=== PATIENT | female | born 1990 ===

== ENCOUNTER 2017-08-20 00:26 | Inpatient (IN) | payer OTHER ==
[~2017-08-20] VITALS: Ht 167.6 cm; Wt 106.6 kg
[2017-08-20 00:48] VITALS: BP 123/59
--- NOTE | 2017-08-20 01:02 | Labor & Delivery Summary ---
Delivery Summary Vaginal Delivery: Vaginal: vertex Placenta: Placenta: spontanteous, normal, 3 vessel, 50 PERCENT ABRUPTION Anesthesia: none Additional Comments: Patient delivered precipitously by nursing viable male infant normal spontaneous vaginal delivery over intact perineum. Placenta self PROPELLED after delivery with a 50% abruption. Patient is O+ 3 blood loss 200 mL
--- NOTE | 2017-08-20 01:10 | History & Physical Pre-Op ---
General Information and HPI MD Statement: I have seen and personally examined ABIMBOLA VOGT and documented this H&P. The patient is a 27 year old F who presented with a patient stated chief complaint of its coming out. Patient delivered precipitously placenta by continuous cord traction. Patient had had adequate care with Gera Mahoney MD on she was here at the childbirth Center earlier today was 1 cm she presented on during delivery. Patient denies any headache edema placenta was examined and found to have a 50% abruption []. History of Present Illness: 77-year-old 3 para 1011 at 39 weeks gestation presents to the childbirth center for the second time and has a precipitous delivery. Patient denies fever headache. Ruptured membranes occurred during the delivery Allergies/Medications Allergies: Coded Allergies: No Known Allergies (08/20/17) Past History Medical History Isolation History: Standard Surgical History Pertinent Surgical History: none Past Family/Social History Psychosocial History Smoking Status: Never Smoked Review of Systems Review of Systems: Negative review of systems Exam & Diagnostic Data Last 24 Hrs of Vital Signs/I&O Vital Signs Date Time Temp Pulse Resp B/P B/P Pulse O2 O2 Flow FiO2 Mean Ox Delivery Rate 08/20 0048 123/59 Intake & Output 08/20 0800 08/20 0000 08/19 1600 Intake Total Output Total Balance Patient 235 lb Weight Physical Exam: Well-built white female classes HEENT anicteric lungs Lungs clear Abdomen soft fundus firm at umbilicus nontender perineum intact cervix intact Extremities negative edema negative [place] Assessment/Plan Assessment/Plan: Assessment is status post normal spontaneous vaginal delivery precipitously planned continue care placenta to pathology As Ranked By This Provider Problem List: 1.
[2017-08-20 02:28] LABS: ABSOLUTE BASOPHIL COUNT 0 /CUMM (0.0-0.2); ABSOLUTE EOSINOPHIL COUNT 0 /CUMM (0.0-0.7); ABSOLUTE GRANULOCYTE CT 9.8 /CUMM (1.4-6.5); ABSOLUTE LYMPH COUNT 1.9 /CUMM (1.2-3.4); ABSOLUTE MONOCYTE COUNT 0.5 /CUMM (0.10-0.60); BASOPHIL % 0.3 % (0.0-2.0); EOSINOPHIL % 0.2 % (0-5); HEMATOCRIT 34.9 % (37-47); MEAN CORPUSCULAR HGB 29.8 PG (27.0-31.0); MEAN CORPUSCULAR HGB CONC 33.1 G/DL (33.0-37.0); MEAN PLATELET VOLUME 9.7 FL (7.4-10.4); PLATELET COUNT 187 /CUMM (130-400); RBC DISTRIBUTION WIDTH 15.9 % (11.5-14.5); RED BLOOD CELL CT 3.88 /CUMM (4.20-5.40); WHITE BLOOD CELL COUNT 12.3 /CUMM (4.8-10.8)
[2017-08-21 08:22] LABS: ABSOLUTE BASOPHIL COUNT 0 /CUMM (0.0-0.2); ABSOLUTE EOSINOPHIL COUNT 0.2 /CUMM (0.0-0.7); ABSOLUTE GRANULOCYTE CT 6.8 /CUMM (1.4-6.5); ABSOLUTE LYMPH COUNT 2.8 /CUMM (1.2-3.4); ABSOLUTE MONOCYTE COUNT 0.5 /CUMM (0.10-0.60); BASOPHIL % 0.4 % (0.0-2.0); EOSINOPHIL % 1.6 % (0-5); GRANULOCYTE % 65.8 % (42.2-75.2); HEMATOCRIT 33.2 % (37-47); MEAN CORPUSCULAR HGB 30.1 PG (27.0-31.0); MEAN CORPUSCULAR HGB CONC 33.8 G/DL (33.0-37.0); MEAN PLATELET VOLUME 8.8 FL (7.4-10.4); PLATELET COUNT 182 /CUMM (130-400); RBC DISTRIBUTION WIDTH 15.7 % (11.5-14.5); RED BLOOD CELL CT 3.73 /CUMM (4.20-5.40); WHITE BLOOD CELL COUNT 10.3 /CUMM (4.8-10.8)
[2017-08-21] MEDS ORDERED: DOCUSATE SODIU100 M3 PO (10:29)
[2017-08-21] MEDS ORDERED: IBUPROFEN800 M1 PO (10:29)
== END 2017-08-21 15:15 | DRG 775 ==
LOC: CBCO 00:26 → GNO 00:40
PROVIDERS: Obstetrics & Gynecology; Specialist
PROC: 10E0XZZ Delivery of Products of Conception, External Approach (ICD-10-PCS; principal; 2017-08-20)
DX: O80 Encounter for full-term uncomplicated delivery (principal); Z3A.39 39 weeks gestation of pregnancy; Z37.0 Single live birth
CPT/HCPCS: GNOS; 36415; 80307; 81001